=== PATIENT | female | born 1965 | race Caucasian/White ===

== ENCOUNTER 2020-11-22 17:42 | Emergency (ER) | payer OTHER, SELFPAY ==
[2020-11-22] VITALS (9 sets, daily range): BP systolic 132–172; BP diastolic 72–85; PULSE 75–83; RESP 16–18; TEMP 36.1; O2SAT 95–98
--- NOTE | 2020-11-22 17:58 | DI.CT.S_ITS ---
PROCEDURE: CT HEAD/BRAIN WO CON INDICATIONS: 2-4 wks of word searching difficulty / headache/ gen weaknes TECHNIQUE: Noncontrast 4.5 mm thick angled axial sections acquired from the foramen magnum to the vertex, with coronal and sagittal reformats. For radiation dose reduction, the following was used: automated exposure control, adjustment of mA and/or kV according to patient size. COMPARISON: None. FINDINGS: Image quality: Excellent. CSF spaces: Basal cisterns are patent. No extra-axial fluid collections. There is mass effect on the lateral ventricles which are partially effaced. Brain: Within the left frontal lobe, there is a thick walled mass or fluid collection measuring up to 4.0 x 3.3 x 3.5 cm centered at the stevenson-white matter junction. There is extensive associated vasogenic edema within the left frontal lobe as well as mass effect. There is subfalcine herniation with rightward midline shift measuring up to 0.9 cm. No definite transtentorial herniation. No intracranial hemorrhage. Skull and face: Calvarium and visualized facial bones are intact, without suspicious lesions. Sinuses: Visualized sinuses and mastoids are clear. IMPRESSION: 1. Thick-walled necrotic mass or fluid collection in the left frontal lobe with associated extensive vasogenic edema and mass effect with rightward midline shift. Differential considerations include metastatic disease or an intraparenchymal abscess. Recommend correlation clinically and further evaluation with a contrast enhanced MRI if indicated. Findings discussed with Dr. Monterroso on 11/22/2020 at 6:45 p.m.. Dictated by: Ralf Martinez M.D. on 11/22/2020 at 18:40 Approved by: Ralf Martinez M.D. on 11/22/2020 at 18:47
[2020-11-22 18:15] LABS: Add Manual Diff / Slide Review NO; Basophils Absolute Auto 100 /uL (0-100); Basophils Percent Auto 0.7 % (0-2); Eosinophils Absolute Auto 100 /uL (0-450); Eosinophils Percent Auto 0.7 % (2-4); Hematocrit 37.9 % (36-46); Hemoglobin 12.9 g/dL (12.0-16.0); Lymphocytes Absolute Auto 2200 /uL (1100-4500); Lymphocytes Percent Auto 31.7 % (25-40); Mean Corpuscular Hemoglobin 29.8 PG (26-34); Mean Corpuscular Volume 87.7 fL (80-100); Monocytes Absolute Auto 500 /uL (0-900); Monocytes Percent Auto 6.6 % (3-14); Neutrophils Absolute Auto 4200 /uL (1500-7000); Neutrophils Percent Auto 60.3 % (50-75); Platelet Count 387 X10^3/uL (150-400); Red Blood Cell Count 4.32 X10^6/uL (4.0-5.2); White Blood Cell Count 6.9 X10^3/uL (4.5-11.0)
[2020-11-22 18:18] LABS: INR 1.2 (0.9-1.3); Prothrombin Time 13.2 SECONDS (10.1-12.7)
[2020-11-22 18:21] LABS: PTT Partial Thromboplastin Tim 31 SECONDS (26.4-36.2)
[2020-11-22 18:23] LABS: Alanine Aminotransferase 20 IU/L (<35); Albumin 4.4 g/dL (3.5-5.0); Albumin Globulin Ratio 1.8 (1.0-2.8); Alkaline Phosphatase 73 U/L (38-126); Aspartate Aminotransferase 25 IU/L (14-36); Bilirubin Total 0.5 mg/dL (0.2-1.3); Blood Urea Nitrogen 9 mg/dL (7-17); Calcium 9.5 mg/dL (8.4-10.2); Carbon Dioxide 26 mmol/L (22-32); Chloride 96 mmol/L (98-107); Creatine Kinase 43 U/L (30-135); Estimated Glomerular Filt Rate > 60.0 mL/min (>60); Globulin 2.5 g/dL (1.7-4.1); Glucose 134 mg/dL (70-100); HEMOLYSIS 16 (0-50); Potassium 4.1 mmol/L (3.4-5.1); Sodium 128 mmol/L (137-145); Total Protein 6.9 g/dL (6.3-8.2)
[2020-11-22 18:34] LABS: Troponin I < 0.012 ng/mL (0.01-0.034)
--- NOTE | 2020-11-22 18:58 | ED.NEUROSD ---
HPI - Neuro Symptoms/Deficit General Chief Complaint: Neuro Symptoms/Deficit Stated Complaint: Pain in head/difficult to speak/poss stroke Time Seen by Provider: 11/22/20 18:04 Source: patient Mode of arrival: Wheelchair Limitations: no limitations History of Present Illness HPI Narrative: This is a 54-year-old female who comes emergency department with complaints of worsening headache for the last several weeks. Increasing difficulty with speaking particular last 2 or 3 days. Patient has noted some word-finding issues and some sensation changes on her left side of her upper and lower extremity. She describes it more of a sensation change. Patient does have quite a bit difficulty with expressing herself and her notes particularly worse last couple days but has been mild for the last several 2-4 weeks she has not had any difficulty with ambulation she does not appreciate any weakness and left versus right side. She has not appreciated any facial droop. No chest pain, no shortness of breath, no nausea or vomiting. Patient does not have any medical issues. She has not any major surgeries. No known drug allergies. Denies tobacco, alcohol or illicit. She has not had any fevers. She has not had any travel. Related Data Home Medications Medication Instructions Recorded Confirmed No Known Home Medications 11/22/20 11/22/20 Allergies Allergy/AdvReac Type Severity Reaction Status Date / Time No Known Drug Allergies Allergy Verified 11/22/20 17:58 Review of Systems Review of Systems ROS Unobtainable: All systems reviewed & are unremarkable except as noted in HPI and below Patient History Social History Smoking Status: Former smoker Smoking Status: Former smoker alcohol intake frequency: 0-2 drinks per day Substance Use Type: does not use Exam Narrative Exam Narrative: GEN: well nourished, well appearing female, alert and oriented x 3, patient appears to be in mild distress. HEENT: Atraumatic, pupils are equal round reactive to light, extraocular movements are intact, nares are clear, TMs are clear with no fluid, there is no conjunctival pallor. Throat is clear without any exudates, erythema, tonsillar enlargement or uvular deviation, patient has some right drink the nasal labial fold. HEART: Regular rate and rhythm without murmur, clicks, rubs. LUNGS:Lungs clear to auscultation, no wheezes, rales, crackles, chest moves symmetrically ABD:bowel sounds normal, soft, non-tender, no guarding, rebound, rigidity, no masses noted, no hepatosplenomegaly :No CVA tenderness MSCL: Non-tender, no muscle atrophy, muscles strength 5/5 upper and lower extremities, full range of motion. NEURO:CN 2-12 intact, sensation normal, reflexes 2/4 upper and lower extremities. finger nose finger test normal, heel hedrick test normal SKIN: Rash, erythema or other skin changes noted. Initial Vital Signs Initial Vital Signs: Vital Signs Temperature 96.9 F L 11/22/20 17:55 Pulse Rate 81 11/22/20 17:55 Respiratory Rate 16 11/22/20 17:55 Blood Pressure 132/72 11/22/20 17:55 Pulse Oximetry 97 11/22/20 17:55 Scores GCS [place] coma scale eye opening: Spontaneous Kelsi coma scale verbal response: Orientated Klesi coma scale motor response: Obey commands [place] coma scale total score: 15 NIH Stroke Scale Level of Conciousness: Alert, keenly responsive Ask month/age: Answers one question correctly, intubated follow commands Open/close eyes, close hand: Performs both tasks correctly Best gaze horizontal: Normal Visual dodson: No visual loss Facial palsy: Minor paralysis, flattened nasolabial fold, asymmetry on smiling Left arm drift: No drift for full 10 sec Right arm drift: No drift for full 10 sec Left leg drift: No drift for full 5 sec Right leg drift: No drift for full 5 sec Limb ataxia: Absent Sensory on face/arms/legs: Normal, no sensory loss Best language: Mild to moderate, slurs some words Dysarthria: Mild to mod,some slurring Extinction or inattention: No abnormality Total NIH Stroke scale score: 4 Course Orders Ordered: ED Orders 11/22/20 17:58 CT head/brain wo con Stat EKG-12 Lead Stat 11/22/20 18:04 Complete Blood Count AUTO DIFF Stat Comprehensive Metabolic Panel Stat Partial Thromboplastin Time Stat Prothrombin Time INR Stat Troponin & CK Cardiac Panel Stat 11/22/20 19:23 COVID19 - ADMIT (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 Zuniga kindly accepts for transfer. Patient has received dexamethasone 10 mg IV. She has not had any seizures at this point. They do not request any additional medications currently. Reviewed patient's current symptomatology, CT findings and plan for ED to ED transfer to [facility]. Vital Signs Vital signs: Vital Signs - 8 hr 11/22/20 17:55 11/22/20 19:23 11/22/20 19:30 Temperature 96.9 F L Pulse Rate 81 83 76 Respiratory Rate 16 16 Blood Pressure 132/72 169/85 H 154/77 H Pulse Oximetry 97 98 98 11/22/20 20:18 11/22/20 20:19 11/22/20 20:30 Temperature Pulse Rate 77 77 75 Respiratory Rate Blood Pressure 152/75 H 154/80 H Pulse Oximetry 97 98 96 11/22/20 21:00 11/22/20 21:01 11/22/20 21:30 Temperature Pulse Rate 75 76 77 Respiratory Rate 18 Blood Pressure 149/76 H 172/77 H Pulse Oximetry 96 97 95 MDM - Neuro Symptoms/Deficit Lab Data Result diagrams: 11/22/20 18:04 11/22/20 18:04 Labs: Lab Results 11/22/20 11/22/20 11/22/20 Range/Units 18:04 18:04 18:04 WBC 6.9 (4.5-11.0) X10^3/uL RBC 4.32 (4.0-5.2) X10^6/uL Hgb 12.9 (12.0-16.0) g/dL Hct 37.9 (36-46) % MCV 87.7 (80-100) fL MCH 29.8 (26-34) PG MCHC 34.0 (30-36) % RDW 14.0 (11.6-14.8) % Plt Count 387 (150-400) X10^3/uL Neut % (Auto) 60.3 (50-75) % Lymph % (Auto) 31.7 (25-40) % Caroline % (Auto) 6.6 (3-14) % Eos % (Auto) 0.7 L (2-4) % Baso % (Auto) 0.7 (0-2) % Neut # (Auto) 4200 (9314-3850) /uL Lymph # (Auto) 2200 (0242-5519) /uL Caroline # (Auto) 500 (0-900) /uL Eos # (Auto) 100 (0-450) /uL Baso # (Auto) 100 (0-100) /uL PT 13.2 H (10.1-12.7) SECONDS INR 1.2 (0.9-1.3) APTT 31 (26.4-36.2) SECONDS Sodium 128 L (137-145) mmol/L Potassium 4.1 (3.4-5.1) mmol/L Chloride 96 L (98-107) mmol/L Carbon Dioxide 26 (22-32) mmol/L BUN 9 (7-17) mg/dL Creatinine 0.36 L (0.52-1.04) mg/dL Estimated GFR > 60.0 (>60) mL/min BUN/Creatinine Ratio 25.0 H (6-22) Glucose 134 H (70-100) mg/dL Calcium 9.5 (8.4-10.2) mg/dL Total Bilirubin 0.5 (0.2-1.3) mg/dL AST 25 (14-36) IU/L ALT 20 (<35) IU/L Alkaline Phosphatase 73 (38-126) U/L Total Creatine Kinase 43 (30-135) U/L CK-MB (CK-2) TNP CK-MB (CK-2) Rel Index TNP Troponin I < 0.012 (0.01-0.034) ng/mL Total Protein 6.9 (6.3-8.2) g/dL Albumin 4.4 (3.5-5.0) g/dL Globulin 2.5 (1.7-4.1) g/dL Albumin/Globulin Ratio 1.8 (1.0-2.8) U Opiates 300ng/mL cut (Negative) Ur Oxycodone Screen (Negative) Urine Methadone Screen (Negative) Ur Barbiturates Screen (Negative) U Tricyclic Antidepress (Negative) Ur Phencyclidine Scrn (Negative) Ur Amphetamines Screen (Negative) U Methamphetamines Scrn (Negative) Ur MDMA Scrn (Ecstasy) (Negative) U Benzodiazepines Scrn (Negative) Urine Cocaine Screen (Negative) U Marijuana (THC) Screen (Negative) SARS-CoV-2 (PCR) (Negative) 11/22/20 11/22/20 Range/Units 19:23 19:47 WBC (4.5-11.0) X10^3/uL RBC (4.0-5.2) X10^6/uL Hgb (12.0-16.0) g/dL Hct (36-46) % MCV (80-100) fL MCH (26-34) PG MCHC (30-36) % RDW (11.6-14.8) % Plt Count (150-400) X10^3/uL Neut % (Auto) (50-75) % Lymph % (Auto) (25-40) % Caroline % (Auto) (3-14) % Eos % (Auto) (2-4) % Baso % (Auto) (0-2) % Neut # (Auto) (6627-0107) /uL Lymph # (Auto) (5900-1656) /uL Caroline # (Auto) (0-900) /uL Eos # (Auto) (0-450) /uL Baso # (Auto) (0-100) /uL PT (10.1-12.7) SECONDS INR (0.9-1.3) APTT (26.4-36.2) SECONDS Sodium (137-145) mmol/L Potassium (3.4-5.1) mmol/L Chloride (98-107) mmol/L Carbon Dioxide (22-32) mmol/L BUN (7-17) mg/dL Creatinine (0.52-1.04) mg/dL Estimated GFR (>60) mL/min BUN/Creatinine Ratio (6-22) Glucose (70-100) mg/dL Calcium (8.4-10.2) mg/dL Total Bilirubin (0.2-1.3) mg/dL AST (14-36) IU/L ALT (<35) IU/L Alkaline Phosphatase (38-126) U/L Total Creatine Kinase (30-135) U/L CK-MB (CK-2) CK-MB (CK-2) Rel Index Troponin I (0.01-0.034) ng/mL Total Protein (6.3-8.2) g/dL Albumin (3.5-5.0) g/dL Globulin (1.7-4.1) g/dL Albumin/Globulin Ratio (1.0-2.8) U Opiates 300ng/mL cut Negative (Negative) Ur Oxycodone Screen Negative (Negative) Urine Methadone Screen Negative (Negative) Ur Barbiturates Screen Negative (Negative) U Tricyclic Antidepress Negative (Negative) Ur Phencyclidine Scrn Negative (Negative) Ur Amphetamines Screen Negative (Negative) U Methamphetamines Scrn Negative (Negative) Ur MDMA Scrn (Ecstasy) Negative (Negative) U Benzodiazepines Scrn Negative (Negative) Urine Cocaine Screen Negative (Negative) U Marijuana (THC) Screen Negative (Negative) SARS-CoV-2 (PCR) Negative (Negative) Point of Care Testing Test Results Negative Urine Dip Bedside Urine Glucose Negative Bedside Urine Bilirubin - Negative Bedside Urine Ketone - Negative Urine Specific [place] 1.010 Bedside Urine Occult Blood - Negative Bedside Urine pH 7.0 Bedside Urine Protein - Negative Bedside Urine Nitrite - Negative Bedside Urine Leukocytes + [address] scan - head: Radiologist's Impression: Launch?[place] [id number] CT Scan Report Signed Patient: Melisa Orr MR#: [id number] : 1965 Acct:[id number] Age/Sex: 54 / F Date of Service: 11/22/20 Loc: ED Accession Number: [id number] ?? Procedure: CT head/brain wo con Ordering Provider: Francie Monterroso D.O. PROCEDURE:? CT HEAD/BRAIN WO CON ? INDICATIONS:? 2-4 wks of word searching difficulty / headache/ gen weaknes ? TECHNIQUE:? Noncontrast 4.5 mm thick angled axial sections acquired from the foramen magnum to the vertex, with coronal and sagittal reformats.? For radiation dose reduction, the following was used:? automated exposure control, adjustment of mA and/or kV according to patient size.? ? COMPARISON:? None. ? FINDINGS:? Image quality:? Excellent.? ? CSF spaces:? Basal cisterns are patent.? No extra-axial fluid collections.? There is mass effect on the lateral ventricles which are partially effaced. ? Brain:? Within the left frontal lobe, there is a thick walled mass or fluid collection measuring up to 4.0 x 3.3 x 3.5 cm centered at the stevenson-white matter junction.? There is extensive associated vasogenic edema within the left frontal lobe as well as mass effect. ?There is subfalcine herniation with rightward midline shift measuring up to 0.9 cm.? No definite transtentorial herniation.? No intracranial hemorrhage.? ? Skull and face:? Calvarium and visualized facial bones are intact, without suspicious lesions.? ? Sinuses:? Visualized sinuses and mastoids are clear.? ? IMPRESSION:? ? 1. Thick-walled necrotic mass or fluid collection in the left frontal lobe with associated extensive vasogenic edema and mass effect with rightward midline shift.? Differential considerations include metastatic disease or an intraparenchymal abscess.? Recommend correlation clinically and further evaluation with a contrast enhanced MRI if indicated. ? Findings discussed with Dr. Monterroso on 11/22/2020 at 6:45 p.m.. ? ? Dictated by: Ralf Martinez M.D. on 11/22/2020 at 18:40 ? ? Approved by: Ralf Martinez M.D. on 11/22/2020 at 18:47? ECG Data Attestation: I personally reviewed and interpreted this ECG as follows: Interpretation: Sinus rhythm rate of 71 SD 178 QRS of 92 and QTC of 456. No acute ST changes appreciated. [facility] Narrative Medical decision making narrative: This is a pleasant 54-year-old female who comes to the emergency department with complaint of several weeks possibly months of left-sided sensation changes. Patient has had some mild word-finding that she describes. She and her both note she has had significantly worsening headache on the left side as well as worsening expressive aphasia over the last several days. Patient has not appreciate any facial droop but does seem to have some mild changes on exam. Patient was given a 4 on her NIH scale but some of her difficulty was more from her expressive aphasia. Patient was given a dose of dexamethasone here in the department. She was not given any additional anti seizure medication but was transferred via ALS so this was an option if this occurred. Critical Care Time Critical Care Time Critical Care Time: Yes Total Critical Care Time: 45 Attestation: The high probability of a clinically significant, sudden or life threatening deterioration of the [neurologic] system(s) required my full and direct attention, intervention and personal management. The aggregate critical care time was [45] minutes. This time is in addition to time spent performing reported procedures but includes the following: [x] Data Review and interpretation x Patient assessment and monitoring of vital signs [x] Documentation [x] Medication orders and management Discharge Plan Departure Patient Disposition: Xfer [facility] Clinical Impression: Brain mass Prescriptions: No Action No Known Home Medications RF: 0
[2020-11-22] MEDS: DEXAMETHASONE 10 MG/ML VIAL IV (19:22)
[2020-11-22 20:13] LABS: UR Morphine/Opiate cutoff 300 Negative (Negative); Ur Creatinine Normal (Normal); Ur Specific Gravity Normal (Normal); Urine Amphetamines Negative (Negative); Urine Barbiturates Negative (Negative); Urine Benzodiazepines Negative (Negative); Urine Cocaine Negative (Negative); Urine MDMA Negative (Negative); Urine Methadone Negative (Negative); Urine Methamphetamines Negative (Negative); Urine Oxycodone Negative (Negative); Urine Phencyclidine Negative (Negative); Urine Tetrahydrocannabinol Negative (Negative); Urine Tricyclic Antidepressant Negative (Negative); Urine pH Normal (Normal)
[2020-11-22 20:19] LABS: COVID19 - ADMIT (NP swab/PCR) Negative (Negative)
--- NOTE | 2020-11-22 21:43 | PC.NURSE ---
Pt to triage w/ via wheel chair. c/o word searching difficulty x 2 months (per pt who did not alert ). noted it 2 weeks ago, with profound increase over past 3 days. Moving all exremities equally well. Equal sensation. Able to ambulate. Noted difficulty saying what she would like to say but able to communicate needs. Pt denies fever, any seizure activity, nausea / vomiting. Pt has no past medical history and does not take any medications. Long discussion with and pt. They have an autistic son for which pt is primary caregiver. Support given.
== END 2020-11-22 22:40 | disposition short-term general hospital (02) ==
PROVIDERS: Emergency Provider Emergency Medicine
DX: G93.89 Other specified disorders of brain (principal); R47.9 Unspecified speech disturbances; Z20.822 Contact with and (suspected) exposure to COVID-19
CPT/HCPCS: 36415; 70450; 80053; 80305; 81003; 81025; 82550; 84484; 85025; 85610; 85730; 87635; 93005; 96374; 99284; 99285; C9803; J1100

== ENCOUNTER → 2020-11-30 12:01 | Outpatient (CLI) | payer OTHER, SELFPAY ==
[2020-11-30 12:56] LABS: Sodium 133 mmol/L (137-145)
== END ==
PROVIDERS: Referring Provider Physician Assistant Surgical; Visit Provider Physician Assistant Surgical
DX: D49.6 Neoplasm of unspecified behavior of brain (principal)
CPT/HCPCS: 36415; 84295

== ENCOUNTER → 2021-06-22 16:57 | Outpatient (CLI) | payer OTHER, SELFPAY ==
--- NOTE | 2021-06-22 | DI.MRI.S_ITS ---
PROCEDURE: MR CERVICAL SPINE WO CON INDICATIONS: History of malignant neoplasm of brain TECHNIQUE: Noncontrast sagittal T1 spin echo and T2 fast spin echo, sagittal STIR, foraminal oblique sagittal T2 fast spin echo, and axial gradient echo or T2 fast spin echo through the cervical spine. COMPARISON: [facility], CT, CT HEAD/BRAIN WO CON, 11/22/2020, 18:36. FINDINGS: Image quality: Excellent. Alignment and Curvature: There is straightening of the normal cervical lordosis. No focal AP alignment abnormality is seen. Bone Marrow: Marrow demonstrates normal overall signal. Spinal Cord: Visualized spinal cord has normal size and signal. No cerebellar tonsillar herniation. Paraspinous Soft Tissues: No paravertebral masses. Prevertebral soft tissues are normal in thickness. C2-C3: No significant abnormality is seen. C3-C4: The disc height is well-preserved. Loss of disc signal is seen at this level. A mild degree of generalized disc osteophyte complex is seen. Mild to moderate facet hypertrophy is seen. There is [id number] right-sided and mild left-sided neural foraminal narrowing. Mild to moderate central canal narrowing is seen. Minimal mass effect can be seen upon the ventral spinal cord. C4-C5: The disc height is well-preserved. Loss of disc signal is seen at this level. Bridging endplate osteophytes are seen. Reactive marrow endplate changes are seen, which are hyperintense on T1-weighted and T2-weighted imaging and most consistent with fatty metaplasia (Modic type II changes). Moderate generalized disc osteophyte complex is seen. Mild to moderate facet hypertrophy is seen. There is moderate right-sided and moderate to severe left-sided neural foraminal narrowing. Moderate central canal narrowing is seen. There is associated mass effect upon the ventral spinal cord. C5-C6: At least moderate loss of disc height and disc signal can be seen. At least moderate disc osteophyte complex is seen, which is eccentric to the left. There is a central disc osteophyte protrusion seen. Moderate facet joint hypertrophy is seen. There is moderate to severe bilateral neural foraminal narrowing seen. Moderate central canal narrowing is seen. There is associated mass effect upon the ventral spinal cord. C6-C7: The disc height is well-preserved. Loss of disc signal is seen at this level. Moderate generalized disc osteophyte complex is seen. Reactive marrow endplate changes are seen, which are hyperintense on T1-weighted and T2-weighted imaging and most consistent with fatty metaplasia (Modic type II changes). There is a central/left disc osteophyte protrusion seen. Mild facet joint hypertrophy is seen. There is at least moderate bilateral neural foraminal narrowing seen. Mild to moderate central canal narrowing is seen, with a mild degree mass effect upon the ventral spinal cord. C7-T1: No significant abnormality is seen. IMPRESSION: Multiple levels of cervical spine degenerative change can be seen, which are overall worst at the C5-C6 level. Dictated by: German Velasquez M.D. on 06/22/2021 at 17:17 Approved by: German Velasquez M.D. on 06/22/2021 at 17:21
== END ==
PROVIDERS: PCP Internal Medicine; Referring Provider Orthopaedic Surgery; Visit Provider Orthopaedic Surgery
DX: M47.812 Spondylosis without myelopathy or radiculopathy, cervical region (principal); R20.0 Anesthesia of skin; Z85.841 Personal history of malignant neoplasm of brain
CPT/HCPCS: 72141

== ENCOUNTER 2021-07-03 11:37 | Emergency (ER) | payer OTHER, SELFPAY ==
[2021-07-03] VITALS (31 sets, daily range): BP systolic 106–145; BP diastolic 52–86; PULSE 88–124; RESP 12–27; TEMP 36.6; O2SAT 93–100; BMI 22.4
--- NOTE | 2021-07-03 11:37 | DI.CT.S_ITS ---
PROCEDURE: CT HEAD/BRAIN WO CON INDICATIONS: seizure, known brain mets TECHNIQUE: Noncontrast 4.5 mm thick angled axial sections acquired from the foramen magnum to the vertex, with coronal and sagittal reformats. For radiation dose reduction, the following was used: automated exposure control, adjustment of mA and/or kV according to patient size. COMPARISON: [facility], CT, CT HEAD/BRAIN WO CON, 11/22/2020, 18:36. FINDINGS: Image quality: Excellent. CSF spaces: Basal cisterns are patent. No extra-axial fluid collections. Ventricles are normal in size and shape. Brain: Again noted is a mass in the left frontal lobe with associated vasogenic edema. No significant mass effect or midline shift. No intracranial hemorrhage. Mild cerebral volume loss. Skull and face: Left frontal craniotomy. Calvarium and visualized facial bones are intact, without suspicious lesions. Sinuses: Visualized sinuses and mastoids are clear. IMPRESSION: 1. There is a mass in the left frontal lobe with associated vasogenic edema. No significant mass effect or midline shift. 2. Postsurgical changes are noted related to prior left frontal craniotomy. Dictated by: Josue Akbar M.D. on 07/03/2021 at 11:35 Approved by: Josue Akbar M.D. on 07/03/2021 at 11:39
[2021-07-03 12:09] LABS: Magnesium 1.9 mg/dL (1.6-2.3)
[2021-07-03] MEDS: SODIUM CHLORIDE 0.9% 1,000 ML 150 ML IV (12:23)
[2021-07-03 12:27] LABS: Prolactin 110.8 ng/mL (3.0-18.6)
[2021-07-03 12:28] LABS: Add Manual Diff / Slide Review NO; Basophils Absolute Auto 0 /uL (0-100); Basophils Percent Auto 0.5 % (0-2); Eosinophils Absolute Auto 100 /uL (0-450); Eosinophils Percent Auto 2.1 % (2-4); Hematocrit 38.2 % (36-46); Hemoglobin 13.1 g/dL (12.0-16.0); Lymphocytes Absolute Auto 600 /uL (1100-4500); Lymphocytes Percent Auto 19.7 % (25-40); Mean Corpuscular HGB Conc 34.2 % (30-36); Mean Corpuscular Volume 90.6 fL (80-100); Monocytes Absolute Auto 400 /uL (0-900); Monocytes Percent Auto 12.2 % (3-14); Neutrophils Absolute Auto 1900 /uL (1500-7000); Neutrophils Percent Auto 65.5 % (50-75); Platelet Count 250 X10^3/uL (150-400); Red Blood Cell Count 4.22 X10^6/uL (4.0-5.2); Red Cell Distribution Width 14.6 % (11.6-14.8); White Blood Cell Count 2.9 X10^3/uL (4.5-11.0)
--- NOTE | 2021-07-03 13:00 | ED_ITS ---
HPI - Seizure General Chief Complaint: Seizure Stated Complaint: Seizure Time Seen by Provider: 07/03/21 11:45 Source: EMS Mode of arrival: EMS History of Present Illness HPI Narrative: 55-year-old female nonsmoker with history of glioblastoma with prior surgical resection followed by radiation and chemotherapy with ongoing monthly oral c hemotherapy in managed by the [facility] presents by EMS for evaluation of first-time seizure. She had been in her normal state of health and denies any recent illness or trauma. Her 1st seizure was not fully witnessed and was noted by there autistic son at which point EMS was activated. She was still postictal on EMS arrival but soon thereafter had a 1 minute witnessed generalized tonic clonic seizure that was treated with Versed 5 mg. She has had no change in medications and had otherwise been largely at her baseline Related Data Home Medications Medication Instructions Recorded Confirmed gabapentin 300 mg capsule 300 mg PO BID cap 05/27/21 05/27/21 temozolomide 140 mg capsule 140 mg PO DAILY 05/27/21 05/27/21 (Temodar) Previous Rx's Medication Instructions Recorded levetiracetam 1,000 mg tablet 1,000 mg PO BID #30 tab 07/03/21 (Keppra) Allergies Allergy/AdvReac Type Severity Reaction Status Date / Time No Known Drug Allergies Allergy Verified 11/22/20 17:58 Review of Systems Review of Systems Narrative: GENERAL: Denies chills, fatigue, malaise, fever, sweats. HEENT: Denies sinus pain, ear pain, sore throat, difficulty swallowing, dizziness. RESPIRATORY: Denies dyspnea, cough, wheezing, hemoptysis, sputum. CARDIOVASCULAR: Denies chest pain, palpitations, orthopnea, edema, GASTROINTESTINAL: Denies nausea, vomiting, abdominal pain, diarrhea, constipation, melena. : Denies dysuria, frequency, incontinence, hematuria, urinary retention. MUSCULOSKELETAL: denies weakness, joint pain, or bony pain SKIN: Denies rash, skin lesions, or other NEUROLOGIC: See HPI PSYCHIATRIC: No concerning psychosocial issues. 12 point review of systems is negative except for those stated above Patient History Medical History Dupuytren contracture Glioblastoma Social History Smoking Status: Never smoker Smoking Status: Never smoker alcohol intake frequency: 0-2 drinks per day Substance Use Type: does not use Exam Narrative Exam Narrative: GENERAL: [55] year old patient appears stated age. Well-developed patient, in obvious distress, arousable, guarding or way, postictal HEAD: Atraumatic. Normocephalic. EYES: Pupils equal round and reactive. Extraocular motions intact. No scleral icterus. No injection or drainage. ENT: Nose without bleeding, purulent drainage. Throat without erythema, tonsillar hypertrophy or exudate. Airway patent. NECK: Trachea midline. Non tender CARDIOVASCULAR: Regular rate and rhythm without murmurs, gallops, or rubs. RESPIRATORY: Clear to auscultation. Breath sounds equal bilaterally. No wheezes, rales, or rhonchi. GASTROINTESTINAL: Abdomen soft, non-tender, nondistended. EXTREMITIES: No edema or joint tenderness. BACK: Nontender without deformity or crepitance. No flank tenderness. NEURO: CN 2 through 12 grossly intact. SKIN: No rash or erythema of visible areas Initial Vital Signs Initial Vital Signs: Vital Signs Pulse Rate 123 H 07/03/21 11:49 Respiratory Rate 19 07/03/21 11:49 Pulse Oximetry 99 07/03/21 11:49 Course Orders Ordered: Discontinued Medications Dexamethasone (Dexamethasone 10 Mg/Ml Vial) 10 mg IV NOW ONE Stop: 07/03/21 13:27 Last Admin: 07/03/21 13:46 Dose: Not Given Documented by: CHRISTIAN Sodium Chloride (Normal Saline 0.9%) 1,000 mls @ 150 mls/hr IV CONT RANJAN Last Infusion: 07/03/21 18:06 Dose: 0 mls/hr Documented by: Infusion: 07/03/21 18:06 Dose: 0 mls/hr Documented by: Admin: 07/03/21 12:23 Dose: 150 mls/hr Documented by: LESVIA Levetiracetam 1,850 mg/ Sodium (Chloride) 118.5 mls @ 474 mls/hr IV NOW ONE Stop: 07/03/21 13:24 Last Infusion: 07/03/21 15:22 Dose: 0 mls/hr Documented by: Admin: 07/03/21 13:47 Dose: 474 mls/hr Documented by: CHRISTIAN Reevaluation(s) Reevaluation #1: Patient had complete resolution of symptoms and had returned to baseline and developed in other generalized tonic clonic seizure that had resolved prior to abdomen could be administered. Reevaluation #2: patient observed for another few hours after Keppra load. She continues to be free of further seizure activity. Though tired, she is able to ambulate through the department without assistance. Consultations Consultation #1: Discussed with on-call Neurology from [facility], he had already reviewed today's CT scan and states no change in minimal vasogenic edema compared to most recent prior MRI from April. Recommends against Decadron for this reason and advocates for Keppra load with expected discharge and prescription for 1000 mg twice daily with close follow-up in [place] Vital Signs Vital signs: Vital Signs - 8 hr 07/03/21 11:49 07/03/21 11:50 07/03/21 12:00 Temperature 97.9 F Pulse Rate 123 H 120 H 123 H Respiratory Rate 19 14 19 Blood Pressure 135/79 145/86 H Pulse Oximetry 99 96 99 MDM - Seizure Lab Data Result diagrams: 07/03/21 11:45 07/03/21 11:45 Labs: Lab Results 07/03/21 07/03/21 07/03/21 Range/Units 11:41 11:45 11:45 WBC 2.9 L (4.5-11.0) X10^3/uL RBC 4.22 (4.0-5.2) X10^6/uL Hgb 13.1 (12.0-16.0) g/dL Hct 38.2 (36-46) % MCV 90.6 (80-100) fL MCH 31.0 (26-34) PG MCHC 34.2 (30-36) % RDW 14.6 (11.6-14.8) % Plt Count 250 (150-400) X10^3/uL Neut % (Auto) 65.5 (50-75) % Lymph % (Auto) 19.7 L (25-40) % Warren % (Auto) 12.2 (3-14) % Eos % (Auto) 2.1 (2-4) % Baso % (Auto) 0.5 (0-2) % Neut # (Auto) 1900 (0534-7004) /uL Lymph # (Auto) 600 L (9624-5046) /uL Warren # (Auto) 400 (0-900) /uL Eos # (Auto) 100 (0-450) /uL Baso # (Auto) 0 (0-100) /uL Sodium (137-145) mmol/L Potassium (3.4-5.1) mmol/L Chloride (98-107) mmol/L Carbon Dioxide (22-32) mmol/L BUN (7-17) mg/dL Creatinine (0.52-1.04) mg/dL Estimated GFR (>60) mL/min BUN/Creatinine Ratio (6-22) Glucose (70-100) mg/dL Calcium (8.4-10.2) mg/dL Magnesium 1.9 (1.6-2.3) mg/dL Total Bilirubin (0.2-1.3) mg/dL AST (14-36) IU/L ALT (<35) IU/L Alkaline Phosphatase (38-126) U/L Total Protein (6.3-8.2) g/dL Albumin (3.5-5.0) g/dL Globulin (1.7-4.1) g/dL Albumin/Globulin Ratio (1.0-2.8) Prolactin 110.8 H (3.0-18.6) ng/mL SARS-CoV-2 (PCR) Negative (Negative) 07/03/21 Range/Units 11:45 WBC (4.5-11.0) X10^3/uL RBC (4.0-5.2) X10^6/uL Hgb (12.0-16.0) g/dL Hct (36-46) % MCV (80-100) fL MCH (26-34) PG MCHC (30-36) % RDW (11.6-14.8) % Plt Count (150-400) X10^3/uL Neut % (Auto) (50-75) % Lymph % (Auto) (25-40) % Warren % (Auto) (3-14) % Eos % (Auto) (2-4) % Baso % (Auto) (0-2) % Neut # (Auto) (4068-1225) /uL Lymph # (Auto) (7289-1115) /uL Warren # (Auto) (0-900) /uL Eos # (Auto) (0-450) /uL Baso # (Auto) (0-100) /uL Sodium 138 (137-145) mmol/L Potassium 4.1 (3.4-5.1) mmol/L Chloride 105 (98-107) mmol/L Carbon Dioxide 24 (22-32) mmol/L BUN 13 (7-17) mg/dL Creatinine 0.52 (0.52-1.04) mg/dL Estimated GFR > 60 (>60) mL/min BUN/Creatinine Ratio 25.0 H (6-22) Glucose 105 H (70-100) mg/dL Calcium 9.0 (8.4-10.2) mg/dL Magnesium (1.6-2.3) mg/dL Total Bilirubin 0.3 (0.2-1.3) mg/dL AST 22 (14-36) IU/L ALT 16 (<35) IU/L Alkaline Phosphatase 84 (38-126) U/L Total Protein 6.4 (6.3-8.2) g/dL Albumin 4.1 (3.5-5.0) g/dL Globulin 2.3 (1.7-4.1) g/dL Albumin/Globulin Ratio 1.8 (1.0-2.8) Prolactin (3.0-18.6) ng/mL SARS-CoV-2 (PCR) (Negative) Imaging Data CT scan - head: Radiologist's Impression: Melisa Orr??55??F??1965 ? Allergy/Adv: No Known Drug Allergies (More??) Close Head CT (Signed) Stephon Akbar - 07/03/21 Cervical Spine MRI (Signed) Germna Velasquez - 06/22/21 DI Result 05/20/[address] (Signed) Ralf Martinez - 11/22/20 Launch?[address] [address] [address] Scan Report Signed Patient: Melisa Orr MR#: [id number] : 1965 Acct:[id number] Age/Sex: 55 / F Date of Service: 07/03/21 Loc: ED Accession Number: [id number] ?? Procedure: CT head/brain wo con Ordering Provider: Bradly Cheatham D.O. PROCEDURE:? CT HEAD/BRAIN WO CON ? INDICATIONS:? seizure, known brain mets ? TECHNIQUE:? Noncontrast 4.5 mm thick angled axial sections acquired from the foramen magnum to the vertex, with coronal and sagittal reformats.? For radiation dose reduction, the following was used:? automated exposure control, adjustment of mA and/or kV according to patient size.? ? COMPARISON:? [facility], CT, CT HEAD/BRAIN WO CON, 11/22/2020, 18:36. ? FINDINGS:? Image quality:? Excellent.? ? CSF spaces:? Basal cisterns are patent.? No extra-axial fluid collections.? Vent ricles are normal in size and shape.? ? Brain:? Again noted is a mass in the left frontal lobe with associated vasogenic edema.? No significant mass effect or midline shift.? No intracranial hemorrhage.? Mild cerebral volume loss.? ? Skull and face:? Left frontal craniotomy.? Calvarium and visualized facial bones are intact, without suspicious lesions.? ? Sinuses:? Visualized sinuses and mastoids are clear.? ? IMPRESSION:? ? 1. There is a mass in the left frontal lobe with associated vasogenic edema.? No significant mass effect or midline shift. ? 2. Postsurgical changes are noted related to prior left frontal craniotomy. ? ? ? Dictated by: Josue Akbar M.D. on 07/03/2021 at 11:35 ? ? Approved by: Josue Akbar M.D. on 07/03/2021 at 11:39 ? MDM Narrative Medical decision making narrative: 55-year-old female with history of glioblastoma status post surgical resection, radiation and chemotherapy is managed by Neurology at [facility] presents with first-time seizure in the aftermath of cancer treatment. Her 1st seizure was largely unwitnessed, the 2nd seen by EMS resolved with Versed and a 3rd witnessed by myself and other staff in the department resolved prior to administration of Ativan. Labs are unremarkable and imaging demonstrates no bleed or significant new vasogenic edema compared to prior imaging. She has been observed for many hours, I have consulted with her neurology group who recommend against Decadron given no new edema, but they do advocate for Keppra load followed by prescription of 1000 mg twice daily. About extensive discussion with the family at the bedside, they understand return precautions and have had questions answered to their apparent satisfaction Critical Care Time Critical Care Time Critical Care Time: Yes Total Critical Care Time: 45 Attestation: The high probability of a clinically significant, sudden or life threatening deterioration of the [CN] system(s) required my full and direct attention, intervention and personal management. The aggregate critical care time was [45] minutes. This time is in addition to time spent performing reported procedures but includes the following: [x] Data Review and interpretation x Patient assessment and monitoring of vital signs x Documentation x Medication orders and management Discharge Plan Departure Patient Disposition: Home Clinical Impression: Glioblastoma, Seizure Instructions: DI for Seizure (Not Epilepsy/Seizure Disorder) Activity Restrictions/Additional Instructions: *You have been diagnosed with [new seizure activity as a consequence of prior glioblastoma and subsequent treatments. *What to do: *Please continue to take your regular medications as directed. [x ] New medication prescriptions sent to your pharmacy: [[facility] ] [ ] New medication written as a paper prescription [ ] No new medications given *Please follow up with Dr. Saleh at the [facility] in the next few days. Please call Monday morning, let them know you were seen in the Emergency Department and that we would like you to be soon in follow up. * as we discussed you may not drive for the next 6 months (sooner if cleared by your neurology team) or engaging in activities that would be considered risk be or you to have another seizure such as swimming, riding a bicycle or other. *Return to Emergency Department if you should have any new, worsening or concerning symptoms, such as [fever greater than 101 F, shaking chills, worsening pain, persistent vomiting or other bothersome symptoms] Prescriptions: New levetiracetam [Keppra] 1,000 mg tablet 1,000 mg PO BID Qty: 30 0RF No Action gabapentin 300 mg capsule 300 mg PO BID 0RF Label Comments: TAKE 1 CAPSULE BY MOUTH TWICE A DAY temozolomide [Temodar] 140 mg capsule 140 mg PO DAILY 0RF Rx Instructions: must be taken on empty stomach Referrals: Filemon Briggs MD [Primary Care Provider] -
--- NOTE | 2021-07-03 13:26 | PC.NURSE ---
at 1322 the patient had a seizure lasting approximately 2 minutes long. She had full body jolting. She maintained O2 saturation above 90% during the episode.
[2021-07-03] MEDS: LORazepam 2 MG/ML INJ (13:27)
[2021-07-03] MEDS: LEVETIRACETAM IV (13:47)
[2021-07-03] MEDS: SODIUM CHLORIDE 0.9% IV (13:47)
[2021-07-03 13:53] LABS: COVID19 -Nasal RAPID Negative (Negative)
[2021-07-03 13:58] LABS: Alanine Aminotransferase 16 IU/L (<35); Albumin 4.1 g/dL (3.5-5.0); Albumin Globulin Ratio 1.8 (1.0-2.8); Alkaline Phosphatase 84 U/L (38-126); Aspartate Aminotransferase 22 IU/L (14-36); Bilirubin Total 0.3 mg/dL (0.2-1.3); Blood Urea Nitrogen 13 mg/dL (7-17); Carbon Dioxide 24 mmol/L (22-32); Chloride 105 mmol/L (98-107); Estimated Glomerular Filt Rate > 60 mL/min (>60); Globulin 2.3 g/dL (1.7-4.1); Glucose 105 mg/dL (70-100); HEMOLYSIS < 15 (0-50); Potassium 4.1 mmol/L (3.4-5.1); Sodium 138 mmol/L (137-145); Total Protein 6.4 g/dL (6.3-8.2)
== END 2021-07-03 18:15 | disposition home or self-care (01) ==
PROVIDERS: Emergency Provider Emergency Medicine; PCP Internal Medicine
DX: R56.9 Unspecified convulsions (principal); R03.0 Elevated blood-pressure reading, without diagnosis of hypertension; Z85.841 Personal history of malignant neoplasm of brain; Z20.822 Contact with and (suspected) exposure to COVID-19
CPT/HCPCS: 36415; 70450; 80053; 83735; 84146; 85025; 87635; 93005; 93010; 96365; 96366; 99284; 99291; C9803; J1953; J2060

== ENCOUNTER 2022-06-01 20:58 | Emergency (ER) | payer OTHER, SELFPAY ==
[2022-06-01] VITALS (34 sets, daily range): BP systolic 111–199; BP diastolic 56–98; PULSE 70–117; RESP 12–41; TEMP 36.4–36.6; O2SAT 92–100; BMI 24.1
--- NOTE | 2022-06-01 | DI.CT.S_ITS ---
PROCEDURE: CT STROKE INDICATIONS: stroke TECHNIQUE: Noncontrast 4.5 mm thick angled axial sections acquired from the foramen magnum to the vertex, with coronal reformats. For radiation dose reduction, the following was used: automated exposure control, adjustment of mA and/or kV according to patient size. COMPARISON: [facility], CT, CT HEAD/BRAIN WO CON, 07/03/2021, 11:50. FINDINGS: Image quality: Excellent. CSF spaces: Basal cisterns are patent. There is mild to moderate cerebral volume loss, with resultant ventricular and sulcal prominence. Mild ex vacuo dilatation of the left lateral ventricle is redemonstrated secondary to left frontal volume loss. Brain: No intracranial hemorrhage or new mass effect. There is encephalomalacia within the left frontal lobe as well as confluent areas of subcortical and periventricular hypodensity in the left frontal and parietal lobes and the right frontal lobe. The findings are increased compared to the prior study. No definite new loss of stevenson-white matter differentiation. Skull and face: Calvarium and visualized facial bones demonstrate no acute fractures. Postsurgical changes are redemonstrated consistent with a prior left frontal craniotomy. Sinuses: Visualized sinuses and mastoids are clear. IMPRESSION: 1. No acute intracranial hemorrhage or definite new loss of stevenson-white matter differentiation. 2. Postsurgical changes redemonstrated in the left frontal lobe with confluent areas of subcortical and periventricular hypodensity which are slightly increased and may represent postsurgical and posttreatment changes but recurrent or residual disease cannot be excluded. Findings discussed with Dr. Cheatham on 06/01/2022 at 9:09 p.m.. This study fulfills neurological imaging criteria for inclusion or exclusion of acute stroke therapies based on available published neurological imaging guidelines. Dictated by: Ralf Martinez M.D. on 06/01/2022 at 21:08 Approved by: Ralf Martinez M.D. on 06/01/2022 at 21:14
--- NOTE | 2022-06-01 21:02 | DI.CT.S_ITS ---
PROCEDURE: CT ANGIO HEAD AND NECK INDICATIONS: stroke TECHNIQUE: After the administration of intravenous contrast, 1 mm thick sections acquired from the aortic arch through the [place] of [place]. Post-contrast 4.5 mm thick sections then re-acquired from the foramen magnum to the vertex. 3-dimensional qfooojf-lsigflmak-jfjwefdkzu (MIP) and/or volume rendering reformats were acquired of the central intracranial vasculature and neck separately. For radiation dose reduction, the following was used: automated exposure control, adjustment of mA and/or kV according to patient size. COMPARISON: [facility], CT, CT HEAD/BRAIN WO CON, 07/03/2021, 11:50. [facility], CT, CT STROKE, 06/01/2022, 21:04. FINDINGS: Image quality: There is mild motion artifact. BRAIN: CSF spaces: Basal cisterns are patent. No extra-axial fluid collections. Ventricles are normal in size and shape. Brain: No intracranial hematoma collections, mass, or mass effect. There is encephalomalacia redemonstrated within the left frontal lobe as well as confluent areas of cortical and subcortical hypodensity. There is mild lobulated enhancement in the left periventricular white matter as seen on series 17, images 13 and 14. Skull and face: Calvarium and facial bones demonstrate no acute fractures. There are postsurgical changes in the left frontal bone consistent with prior craniotomy. Sinuses: Sinuses and mastoids are clear. HEAD CT ANGIOGRAPHY: Anterior circulation: Intracranial internal carotid arteries are normal in size and appear patent bilaterally. There is mild atherosclerotic calcification along the cavernous segments of the internal carotid arteries. The paired anterior cerebral arteries appear patent bilaterally. The anterior communicating artery also appears patent. The middle cerebral arteries appear patent bilaterally. No high-grade stenosis, occlusion, or filling defects. No cerebral aneurysms identified. Posterior circulation: Visualized portions of the vertebral arteries demonstrate normal caliber, and join to form a patent basilar artery. The posterior cerebral arteries appears patent bilaterally. No high-grade stenosis, occlusion, or filling defects. No cerebral aneurysms identified. NECK CT ANGIOGRAPHY: Carotid system: The great vessels demonstrate a conventional anatomy as they arise from the aortic arch. The origins of the common carotid arteries appear patent. The common carotid arteries demonstrate normal caliber and courses. The bifurcation regions are both widely patent. The internal carotid arteries demonstrate normal calibers and courses. Posterior circulation: The origins of the vertebral arteries both appear patent. The more superior extracranial portions of both vertebral arteries also demonstrate normal courses and calibers. They join to form a patent basilar artery. Soft tissues: Visualized neck soft tissues demonstrate no suspicious abnormalities. Bones: No suspicious bony lesions. Visualized cervical spine demonstrates straightening of the cervical lordosis. There is multilevel degenerative disc disease and facet joint arthropathy. IMPRESSION: 1. No high-grade stenosis or occlusion of the central intracranial arteries. 2. No high-grade stenosis or occlusion of the head and neck arteries. 3. Left frontal postsurgical changes redemonstrated. 4. Confluent areas of cortical and subcortical hypodensity redemonstrated primarily within the left frontal lobe with a region of mild lobulated enhancement as described. The findings are suspicious for residual or recurrent disease. Recommend follow-up evaluation with MRI when clinically feasible. Any quantitative measurements of stenosis were performed using NASCET criteria. Dictated by: Ralf Martinez M.D. on 06/01/2022 at 21:49 Approved by: Ralf Martinez M.D. on 06/01/2022 at 21:54
[2022-06-01 21:12] LABS: Add Manual Diff / Slide Review NO; Basophils Absolute Auto 100 /uL (0-100); Basophils Percent Auto 1.2 % (0-2); Eosinophils Absolute Auto 200 /uL (0-450); Eosinophils Percent Auto 3.3 % (2-4); Hematocrit 39.2 % (36-46); Hemoglobin 13.3 g/dL (12.0-16.0); INR 1.1 (0.9-1.3); Lymphocytes Absolute Auto 1500 /uL (1100-4500); Lymphocytes Percent Auto 29.3 % (25-40); Mean Corpuscular HGB Conc 33.8 % (30-36); Mean Corpuscular Hemoglobin 30.5 PG (26-34); Mean Corpuscular Volume 90.1 fL (80-100); Monocytes Absolute Auto 600 /uL (0-900); Neutrophils Absolute Auto 2800 /uL (1500-7000); Neutrophils Percent Auto 54.2 % (50-75); Platelet Count 330 X10^3/uL (150-400); Prothrombin Time 12.9 SECONDS (10.1-12.7); Red Blood Cell Count 4.35 X10^6/uL (4.0-5.2); Red Cell Distribution Width 13.5 % (11.6-14.8); White Blood Cell Count 5.2 X10^3/uL (4.5-11.0)
[2022-06-01 21:14] LABS: PTT Partial Thromboplastin Tim 29 SECONDS (26-36)
--- NOTE | 2022-06-01 21:14 | ED_ITS ---
HPI - Altered Mental Status <Bradly Cheatham DO - Last Filed: 06/03/22 22:06> General Chief Complaint: Neuro Symptoms/Deficit Stated Complaint: Stroke Time Seen by Provider: 06/01/22 21:03 History of Present Illness HPI narrative: 56-year-old female nonsmoker with history of glioblastoma and seizure. She is had treatment including neurosurgical intervention through the [facility]. She had been in her normal state of health until 8:15 p.m. tonight when she started having trouble with speech and seemed to be staring off to the right side. There is no obvious extremity weakness. She presents by EMS in his activated as a code stroke. She presents with an Optune device which has been used with apparent success since about July or August. Her is at the bedside and reports that she had been in her normal state of health with no change in medications or diet up until this event. She does not take blood thinners. Last neurosurgical intervention was 2020 Related Data Home Medications Medication Instructions Recorded Confirmed Naltrexone Ir 4 mg PO BEDTIME 06/02/22 06/02/22 levetiracetam 750 mg tablet 1,500 mg PO BID 06/02/22 06/02/22 Previous Rx's Medication Instructions Recorded levetiracetam 250 mg tablet See Rx Instructions .Route 06/03/22 (Keppra) .COMPLEX #60 tabs Allergies Allergy/AdvReac Type Severity Reaction Status Date / Time No Known Drug Allergies Allergy Verified 06/02/22 07:33 Review of Systems <Bradly Cheatham DO - Last Filed: 06/03/22 22:06> Review of Systems ROS Unobtainable: Unobtainable due to mental status/LOC Patient History <Bradly Cheatham DO - Last Filed: 06/03/22 22:06> Medical History Anxiety (~2020) Chicken pox (~1966) Dupuytren contracture Glioblastoma (~2020) Mumps (~1968) Shoulder pain (~1977) Surgical History Anesthesia History of brain surgery (~11/22/20) History of tonsillectomy and adenoidectomy (~1967) Family History Father Mental health problem Sister Breast cancer Grandfather Cancer Grandmother History of heart disease Social History Smoking Status: Never smoker Smoking Status: Never smoker alcohol intake frequency: 0-2 drinks per day Substance Use Type: does not use Exam <Bradly Cheatham DO - Last Filed: 06/03/22 22:06> Narrative Exam Narrative: GENERAL: [56] year old patient appears stated age. Well-developed patient, in mild distress. Unable to follow commands, making eye contact but speech is garbled HEAD: Atraumatic. Normocephalic. EYES: Pupils equal round and reactive. Extraocular motions intact. No scleral icterus. No injection or drainage. ENT: Nose without bleeding, purulent drainage. Throat without erythema, tonsillar hypertrophy or exudate. Airway patent. NECK: Trachea midline. Non tender CARDIOVASCULAR: Regular rate and rhythm without murmurs, gallops, or rubs. RESPIRATORY: Clear to auscultation. Breath sounds equal bilaterally. No wheezes, rales, or rhonchi. GASTROINTESTINAL: Abdomen soft, non-tender, nondistended. EXTREMITIES: No edema or joint tenderness. BACK: CNII-XII grossly in tact SKIN: No rash or erythema of visible areas Initial Vital Signs Initial Vital Signs: Vital Signs Pulse Oximetry 98 06/01/22 21:13 <Francie Monterroso DO - Last Filed: 06/04/22 08:07> Initial Vital Signs Initial Vital Signs: Vital Signs Pulse Oximetry 98 06/01/22 21:13 Course <Bradly Cheatham DO - Last Filed: 06/03/22 22:06> Orders Ordered: Discontinued Medications Dexamethasone (Dexamethasone 4 Mg/Ml Vial) 4 mg IV NOW ONE Stop: 06/01/22 22:12 Last Admin: 06/01/22 22:17 Dose: 4 mg Documented By: RB Levetiracetam 1,000 mg/ Sodium (Chloride) 110 mls @ 440 mls/hr IV NOW ONE Stop: 06/01/22 21:58 Last Infusion: 06/01/22 22:21 Dose: 0 mls/hr Documented By: Admin: 06/01/22 22:04 Dose: 440 mls/hr Documented By: RB Levetiracetam (Levetiracetam 250 Mg Tablet) 1,500 mg PO BID RANJAN Last Admin: 06/03/22 08:33 Dose: 1,500 mg Documented By: Admin: 06/02/22 20:55 Dose: 1,500 mg Documented By: Admin: 06/02/22 08:25 Dose: 1,500 mg Documented By: CTS Levetiracetam (Levetiracetam 250 Mg Tablet) 500 mg PO NOW ONE Stop: 06/03/22 10:37 Last Admin: 06/03/22 10:54 Dose: 500 mg Documented By: RLS Lorazepam (Lorazepam 2 Mg/Ml Inj) 2 mg IV NOW ONE Stop: 06/01/22 21:58 Last Admin: 06/01/22 21:59 Dose: 2 mg Documented By: RB Reevaluation(s) Reevaluation #1: Called to see patient, having much more classic seizure type activity at this point, staring to the right with more vigorous twitching of her right upper extremity. Ativan 2 mg IV ordered along with Keppra 1000 mg Reevaluation #2: noted improvement of more vigorous seizure activity. Still mumbling words Consultations Consultation #1: 2109 - call from Dr. Martinez radiology. No bleed 2114 - [place] [place]. Agrees with no TPA given contraindication due to brain tumor 2149 - discussed with NeuroOncology (Susanna) agrees this is likely complex partial seizure, recommends Decadron 4 mg through the IV and agrees that transfer is likely to be beneficial. Can not admit, recommends discussion with neuro, working on bed 0230 - resting, seems to be somewhat improved. No further seizure activity Vital Signs Vital signs: Vital Signs - 8 hr 06/03/22 03:40 06/03/22 08:35 Pulse Rate 64 80 Respiratory Rate 18 Blood Pressure 117/66 108/55 L Pulse Oximetry 96 96 Oxygen Delivery Method Room Air <Francie Monterroso DO - Last Filed: 06/04/22 08:07> Orders Ordered: Discontinued Medications Dexamethasone (Dexamethasone 4 Mg/Ml Vial) 4 mg IV NOW ONE Stop: 06/01/22 22:12 Last Admin: 06/01/22 22:17 Dose: 4 mg Documented By: RB Levetiracetam 1,000 mg/ Sodium (Chloride) 110 mls @ 440 mls/hr IV NOW ONE Stop: 06/01/22 21:58 Last Infusion: 06/01/22 22:21 Dose: 0 mls/hr Documented By: Admin: 06/01/22 22:04 Dose: 440 mls/hr Documented By: RB Levetiracetam (Levetiracetam 250 Mg Tablet) 1,500 mg PO BID RANJAN Last Admin: 06/03/22 08:33 Dose: 1,500 mg Documented By: Admin: 06/02/22 20:55 Dose: 1,500 mg Documented By: Admin: 06/02/22 08:25 Dose: 1,500 mg Documented By: PIERCE Levetiracetam (Levetiracetam 250 Mg Tablet) 500 mg PO NOW ONE Stop: 06/03/22 10:37 Last Admin: 06/03/22 10:54 Dose: 500 mg Documented By: BALTAZAR Lorazepam (Lorazepam 2 Mg/Ml Inj) 2 mg IV NOW ONE Stop: 06/01/22 21:58 Last Admin: 06/01/22 21:59 Dose: 2 mg Documented By: RB Vital Signs Vital signs: Vital Signs - 8 hr 06/03/22 03:40 06/03/22 08:35 Pulse Rate 64 80 Respiratory Rate 18 Blood Pressure 117/66 108/55 L Pulse Oximetry 96 96 Oxygen Delivery Method Room Air MDM - Altered Mental Status <Bradly Cheatham DO - Last Filed: 06/03/22 22:06> Lab Data 06/01/22 20:55 06/01/22 20:55 Labs: Lab Results 06/01/22 06/01/22 06/01/22 Range/Units 20:55 20:55 20:55 WBC 5.2 (4.5-11.0) X10^3/uL RBC 4.35 (4.0-5.2) X10^6/uL Hgb 13.3 (12.0-16.0) g/dL Hct 39.2 (36-46) % MCV 90.1 (80-100) fL MCH 30.5 (26-34) PG MCHC 33.8 (30-36) % RDW 13.5 (11.6-14.8) % Plt Count 330 (150-400) X10^3/uL Neut % (Auto) 54.2 (50-75) % Lymph % (Auto) 29.3 (25-40) % Concho % (Auto) 12.0 (3-14) % Eos % (Auto) 3.3 (2-4) % Baso % (Auto) 1.2 (0-2) % Neut # (Auto) 2800 (3281-1182) /uL Lymph # (Auto) 1500 (5376-3805) /uL Concho # (Auto) 600 (0-900) /uL Eos # (Auto) 200 (0-450) /uL Baso # (Auto) 100 (0-100) /uL PT 12.9 H (10.1-12.7) SECONDS INR 1.1 (0.9-1.3) APTT 29 (26-36) SECONDS Sodium 134 L (137-145) mmol/L Potassium 4.2 (3.4-5.1) mmol/L Chloride 98 (98-107) mmol/L Carbon Dioxide 28 (22-32) mmol/L BUN 18 H (7-17) mg/dL Creatinine 0.57 (0.52-1.04) mg/dL Estimated GFR > 60 (>60) mL/min BUN/Creatinine Ratio 31.6 H (6-22) Glucose 101 H (70-100) mg/dL Calcium 9.5 (8.4-10.2) mg/dL Total Bilirubin 0.5 (0.2-1.3) mg/dL AST 29 (14-36) IU/L ALT 34 (<35) IU/L Alkaline Phosphatase 107 (38-126) U/L Total Creatine Kinase 49 (30-135) U/L CK-MB (CK-2) TNP CK-MB (CK-2) Rel Index TNP Troponin I < 0.012 (0.01-0.034) ng/mL Total Protein 7.2 (6.3-8.2) g/dL Albumin 4.5 (3.5-5.0) g/dL Globulin 2.7 (1.7-4.1) g/dL Albumin/Globulin Ratio 1.7 (1.0-2.8) Urine Color Urine Appearance Urine pH (4.5-8.0) Ur Specific Roberta (1.000-1.035) Urine Protein (Negative) Urine Glucose (UA) (Negative) g/dL Urine Ketones (NEGATIVE) Urine Occult Blood (Negative) Urine Nitrate (Negative) Urine Bilirubin (NEGATIVE) Urine Urobilinogen (0.2) E.U./dL Ur Leukocyte Esterase (NEGATIVE) Urine RBC (0-5/HPF) Urine WBC (0-5/HPF) Ur Squamous Epith Cells (0-5/HPF) Urine Bacteria (None) Ur Culture Indicated? U Opiates 300ng/mL cut (Negative) Ur Oxycodone Screen (Negative) Urine Methadone Screen (Negative) Ur Barbiturates Screen (Negative) U Tricyclic Antidepress (Negative) Ur Phencyclidine Scrn (Negative) Ur Amphetamines Screen (Negative) U Methamphetamines Scrn (Negative) Ur MDMA Scrn (Ecstasy) (Negative) U Benzodiazepines Scrn (Negative) Urine Cocaine Screen (Negative) U Marijuana (THC) Screen (Negative) Ethyl Alcohol < 10 ( - 10) mg/dL SARS-CoV-2 (PCR) (Negative) 06/01/22 06/01/22 06/01/22 Range/Units 21:25 21:25 21:29 WBC (4.5-11.0) X10^3/uL RBC (4.0-5.2) X10^6/uL Hgb (12.0-16.0) g/dL Hct (36-46) % MCV (80-100) fL MCH (26-34) PG MCHC (30-36) % RDW (11.6-14.8) % Plt Count (150-400) X10^3/uL Neut % (Auto) (50-75) % Lymph % (Auto) (25-40) % Concho % (Auto) (3-14) % Eos % (Auto) (2-4) % Baso % (Auto) (0-2) % Neut # (Auto) (8236-9893) /uL Lymph # (Auto) (9949-0673) /uL Concho # (Auto) (0-900) /uL Eos # (Auto) (0-450) /uL Baso # (Auto) (0-100) /uL PT (10.1-12.7) SECONDS INR (0.9-1.3) APTT (26-36) SECONDS Sodium (137-145) mmol/L Potassium (3.4-5.1) mmol/L Chloride (98-107) mmol/L Carbon Dioxide (22-32) mmol/L BUN (7-17) mg/dL Creatinine (0.52-1.04) mg/dL Estimated GFR (>60) mL/min BUN/Creatinine Ratio (6-22) Glucose (70-100) mg/dL Calcium (8.4-10.2) mg/dL Total Bilirubin (0.2-1.3) mg/dL AST (14-36) IU/L ALT (<35) IU/L Alkaline Phosphatase (38-126) U/L Total Creatine Kinase (30-135) U/L CK-MB (CK-2) CK-MB (CK-2) Rel Index Troponin I (0.01-0.034) ng/mL Total Protein (6.3-8.2) g/dL Albumin (3.5-5.0) g/dL Globulin (1.7-4.1) g/dL Albumin/Globulin Ratio (1.0-2.8) Urine Color Yellow Urine Appearance Clear Urine pH 6.5 (4.5-8.0) Ur Specific Roberta <=1.005 (1.000-1.035) Urine Protein Negative (Negative) Urine Glucose (UA) Negative (Negative) g/dL Urine Ketones Negative (NEGATIVE) Urine Occult Blood Negative (Negative) Urine Nitrate Negative (Negative) Urine Bilirubin Negative (NEGATIVE) Urine Urobilinogen 0.2 (0.2) E.U./dL Ur Leukocyte Esterase 1+ H (NEGATIVE) Urine RBC 1-5/hpf (0-5/HPF) Urine WBC 1-5/hpf (0-5/HPF) Ur Squamous Epith Cells 0-1 /hpf (0-5/HPF) Urine Bacteria None seen (None) Ur Culture Indicated? Specimen cultured U Opiates 300ng/mL cut Negative (Negative) Ur Oxycodone Screen Negative (Negative) Urine Methadone Screen Negative (Negative) Ur Barbiturates Screen Negative (Negative) U Tricyclic Antidepress Negative (Negative) Ur Phencyclidine Scrn Negative (Negative) Ur Amphetamines Screen Negative (Negative) U Methamphetamines Scrn Negative (Negative) Ur MDMA Scrn (Ecstasy) Negative (Negative) U Benzodiazepines Scrn Negative (Negative) Urine Cocaine Screen Negative (Negative) U Marijuana (THC) Screen Negative (Negative) Ethyl Alcohol ( - 10) mg/dL SARS-CoV-2 (PCR) Negative (Negative) Point of Care Testing Glucose POC 107 <Francie Monterroso, DO - Last Filed: 06/04/22 08:07> Lab Data Labs: Lab Results 06/01/22 06/01/22 06/01/22 Range/Units 20:55 20:55 20:55 WBC 5.2 (4.5-11.0) X10^3/uL RBC 4.35 (4.0-5.2) X10^6/uL Hgb 13.3 (12.0-16.0) g/dL Hct 39.2 (36-46) % MCV 90.1 (80-100) fL MCH 30.5 (26-34) PG MCHC 33.8 (30-36) % RDW 13.5 (11.6-14.8) % Plt Count 330 (150-400) X10^3/uL Neut % (Auto) 54.2 (50-75) % Lymph % (Auto) 29.3 (25-40) % Concho % (Auto) 12.0 (3-14) % Eos % (Auto) 3.3 (2-4) % Baso % (Auto) 1.2 (0-2) % Neut # (Auto) 2800 (8048-9544) /uL Lymph # (Auto) 1500 (9902-6683) /uL Concho # (Auto) 600 (0-900) /uL Eos # (Auto) 200 (0-450) /uL Baso # (Auto) 100 (0-100) /uL PT 12.9 H (10.1-12.7) SECONDS INR 1.1 (0.9-1.3) APTT 29 (26-36) SECONDS Sodium 134 L (137-145) mmol/L Potassium 4.2 (3.4-5.1) mmol/L Chloride 98 (98-107) mmol/L Carbon Dioxide 28 (22-32) mmol/L BUN 18 H (7-17) mg/dL Creatinine 0.57 (0.52-1.04) mg/dL Estimated GFR > 60 (>60) mL/min BUN/Creatinine Ratio 31.6 H (6-22) Glucose 101 H (70-100) mg/dL Calcium 9.5 (8.4-10.2) mg/dL Total Bilirubin 0.5 (0.2-1.3) mg/dL AST 29 (14-36) IU/L ALT 34 (<35) IU/L Alkaline Phosphatase 107 (38-126) U/L Total Creatine Kinase 49 (30-135) U/L CK-MB (CK-2) TNP CK-MB (CK-2) Rel Index TNP Troponin I < 0.012 (0.01-0.034) ng/mL Total Protein 7.2 (6.3-8.2) g/dL Albumin 4.5 (3.5-5.0) g/dL Globulin 2.7 (1.7-4.1) g/dL Albumin/Globulin Ratio 1.7 (1.0-2.8) Urine Color Urine Appearance Urine pH (4.5-8.0) Ur Specific Roberta (1.000-1.035) Urine Protein (Negative) Urine Glucose (UA) (Negative) g/dL Urine Ketones (NEGATIVE) Urine Occult Blood (Negative) Urine Nitrate (Negative) Urine Bilirubin (NEGATIVE) Urine Urobilinogen (0.2) E.U./dL Ur Leukocyte Esterase (NEGATIVE) Urine RBC (0-5/HPF) Urine WBC (0-5/HPF) Ur Squamous Epith Cells (0-5/HPF) Urine Bacteria (None) Ur Culture Indicated? U Opiates 300ng/mL cut (Negative) Ur Oxycodone Screen (Negative) Urine Methadone Screen (Negative) Ur Barbiturates Screen (Negative) U Tricyclic Antidepress (Negative) Ur Phencyclidine Scrn (Negative) Ur Amphetamines Screen (Negative) U Methamphetamines Scrn (Negative) Ur MDMA Scrn (Ecstasy) (Negative) U Benzodiazepines Scrn (Negative) Urine Cocaine Screen (Negative) U Marijuana (THC) Screen (Negative) Ethyl Alcohol < 10 ( - 10) mg/dL SARS-CoV-2 (PCR) (Negative) 06/01/22 06/01/22 06/01/22 Range/Units 21:25 21:25 21:29 WBC (4.5-11.0) X10^3/uL RBC (4.0-5.2) X10^6/uL Hgb (12.0-16.0) g/dL Hct (36-46) % MCV (80-100) fL MCH (26-34) PG MCHC (30-36) % RDW (11.6-14.8) % Plt Count (150-400) X10^3/uL Neut % (Auto) (50-75) % Lymph % (Auto) (25-40) % Concho % (Auto) (3-14) % Eos % (Auto) (2-4) % Baso % (Auto) (0-2) % Neut # (Auto) (5994-2965) /uL Lymph # (Auto) (7090-7708) /uL Concho # (Auto) (0-900) /uL Eos # (Auto) (0-450) /uL Baso # (Auto) (0-100) /uL PT (10.1-12.7) SECONDS INR (0.9-1.3) APTT (26-36) SECONDS Sodium (137-145) mmol/L Potassium (3.4-5.1) mmol/L Chloride (98-107) mmol/L Carbon Dioxide (22-32) mmol/L BUN (7-17) mg/dL Creatinine (0.52-1.04) mg/dL Estimated GFR (>60) mL/min BUN/Creatinine Ratio (6-22) Glucose (70-100) mg/dL Calcium (8.4-10.2) mg/dL Total Bilirubin (0.2-1.3) mg/dL AST (14-36) IU/L ALT (<35) IU/L Alkaline Phosphatase (38-126) U/L Total Creatine Kinase (30-135) U/L CK-MB (CK-2) CK-MB (CK-2) Rel Index Troponin I (0.01-0.034) ng/mL Total Protein (6.3-8.2) g/dL Albumin (3.5-5.0) g/dL Globulin (1.7-4.1) g/dL Albumin/Globulin Ratio (1.0-2.8) Urine Color Yellow Urine Appearance Clear Urine pH 6.5 (4.5-8.0) Ur Specific Roberta <=1.005 (1.000-1.035) Urine Protein Negative (Negative) Urine Glucose (UA) Negative (Negative) g/dL Urine Ketones Negative (NEGATIVE) Urine Occult Blood Negative (Negative) Urine Nitrate Negative (Negative) Urine Bilirubin Negative (NEGATIVE) Urine Urobilinogen 0.2 (0.2) E.U./dL Ur Leukocyte Esterase 1+ H (NEGATIVE) Urine RBC 1-5/hpf (0-5/HPF) Urine WBC 1-5/hpf (0-5/HPF) Ur Squamous Epith Cells 0-1 /hpf (0-5/HPF) Urine Bacteria None seen (None) Ur Culture Indicated? Specimen cultured U Opiates 300ng/mL cut Negative (Negative) Ur Oxycodone Screen Negative (Negative) Urine Methadone Screen Negative (Negative) Ur Barbiturates Screen Negative (Negative) U Tricyclic Antidepress Negative (Negative) Ur Phencyclidine Scrn Negative (Negative) Ur Amphetamines Screen Negative (Negative) U Methamphetamines Scrn Negative (Negative) Ur MDMA Scrn (Ecstasy) Negative (Negative) U Benzodiazepines Scrn Negative (Negative) Urine Cocaine Screen Negative (Negative) U Marijuana (THC) Screen Negative (Negative) Ethyl Alcohol ( - 10) mg/dL SARS-CoV-2 (PCR) Negative (Negative) Point of Care Testing Glucose POC 107 MDM Narrative Medical decision making narrative: This is a 56-year-old female signed out to myself by Dr. Cheatham, patient seen and independently evaluated by myself while awaiting bed assignment and finney sfer. Patient has history of glioblastoma and prior seizures. Patient has had prior neurosurgical intervention through [facility]. Had concern for possible stroke versus complex seizure overnight was seen here and then developed seizure-like activity that appeared to be complex seizure of the right upper extremity. Patient was loaded with Keppra, received a 2 mg dose of Ativan. Had significant improvement and is alert, appropriate and back to baseline. Patient's case was discussed with Neurology stroke, Neuro-Oncology as well as neuro hospitalist at [facility] she was also given 4 mg of Decadron with plan for transfer to [facility]. Dr. Mullins is the accepting physician at . 1036 Called to bedside questionable patient has a little bit of right droop at the corner of her mouth. Patient over comes as easily with smile and movement. Rest of her current neuro exam is normal. She does have little bit of a flat affect which he had when I initially saw her as well. We will continue to monitor patient does not have any other acute or dynamic neurologic changes appreciated right now. Patient signed out to Dr. Marcos overnight while a waiting possible placement. 06/03/22 Mank: Patient had an uneventful night. Signed back out to myself by Dr. Marcos. Seen and evaluated by myself. Patient has continued her Keppra at 1500mg BID. Recontacted to [facility] to discuss if patient still requires transfer at 30 hours of observation without additional seizure activity or if appropriate for outpatient follow up. Discussed with patient she feels comfortable this plan, we discussed if she or her feels uncomfortable we do not have to discharge. I discussed with her all contact her [facility] team to see what their recommendations are and if they feel this is appropriate course of action or if we should continue to hold until transfers available. Spoke with Dr. Vera at [facility], patient's is also familiar with her he notes she is covering for her regular neurology team. We reviewed their recommendations as well as ours, she does recommend patient be on 17 50 mg b.i.d. as 1500 mg twice daily is her normal home dose. There had been discussion about dexamethasone we discussed that she had 4 mg initially here has not had any continued based on initial recommendations from the initial team. She feels appropriate to keep patient off the dexamethasone at this point. She feels patient is appropriate for discharge with >24 hours seizure free and no additional changes. She has follow-up on the 15 of June and has a MRI scheduled in the next week according to her . Patient is quite comfortable with this plan. Discussed recommendations with the who is also touching base with the neurology team, he was in contact with Dr. Vera and her team today as well and agrees with plan. Discussed return precautions. She is currently on 2 tablets of 750 mg Keppra for a total of 1500 mg will add a 250 mg tablet twice daily. Additional dose given here this morning and 1 dose for this evening at home with a prescription sent to [facility] in [place] as that is the closest their insurance covers. Discharge Plan Departure Patient Disposition: Home Clinical Impression: Complex partial seizure, Glioblastoma Activity Restrictions/Additional Instructions: Follow up with your team at [facility] at your appointment on June 15, Dr. Vera does ask to connect with office. They do recommend to increase your Keppra to 1750mg twice daily, this means to add at 250mg tablet to your current Keppra (2 tablets for 750mg). Prescription sent to [facility] in [place] Please return for recurrent seizure activity, altered mental status, fevers, new difficulty with movement, speech, facial droop, severe headaches, persistent vomiting or other new or concerning changes. Prescriptions: New levetiracetam [Keppra] 250 mg tablet See Rx Instructions .ROUTE .COMPLEX Qty: 60 0RF Rx Instructions: Take 2 tablets of 750mg and 1 tablet of 250mg (1500mg total) twice daily No Action levetiracetam 750 mg tablet 1,500 mg PO BID Naltrexone Ir 4 mg PO BEDTIME Rx Instructions: *DR*LF*FELIBERTO* Homeopathic medication: Hold while in hospital. Referrals: Dafne Vera MD [Non-Staff] - Filemon Briggs MD [Primary Care Provider] - Stand Alone Forms: Patient Portal/API
[2022-06-01 21:18] LABS: Alanine Aminotransferase 34 IU/L (<35); Albumin 4.5 g/dL (3.5-5.0); Albumin Globulin Ratio 1.7 (1.0-2.8); Alkaline Phosphatase 107 U/L (38-126); Aspartate Aminotransferase 29 IU/L (14-36); BUN Creatinine Ratio 31.6 (6-22); Bilirubin Total 0.5 mg/dL (0.2-1.3); Blood Urea Nitrogen 18 mg/dL (7-17); Calcium 9.5 mg/dL (8.4-10.2); Carbon Dioxide 28 mmol/L (22-32); Chloride 98 mmol/L (98-107); Creatine Kinase 49 U/L (30-135); Estimated Glomerular Filt Rate > 60 mL/min (>60); Globulin 2.7 g/dL (1.7-4.1); Glucose 101 mg/dL (70-100); HEMOLYSIS 22 (0-50); Potassium 4.2 mmol/L (3.4-5.1); Sodium 134 mmol/L (137-145); Total Protein 7.2 g/dL (6.3-8.2)
[2022-06-01 21:23] LABS: Ethanol (ETOH) < 10 mg/dL
[2022-06-01 21:29] LABS: Troponin I < 0.012 ng/mL (0.01-0.034)
[2022-06-01 21:42] LABS: Appearance Urine UA CLEAR; Bilirubin Urine UA NEGATIVE (NEGATIVE); Color Urine UA YELLOW; Glucose Urine UA NEGATIVE (Negative); Ketones Urine UA NEGATIVE (NEGATIVE); Leukocyte Esterase Urine UA 1+ (NEGATIVE); Nitrite Urine UA NEGATIVE (Negative); Occult Blood Urine UA NEGATIVE (Negative); Protein Urine UA NEGATIVE (Negative); Specific Gravity Urine UA <=1.005 (1.000-1.035); Urobilinogen Urine UA 0.2 E.U./dL (0.2)
[2022-06-01 21:44] LABS: Bacteria Urine None Seen; Culture Indicated Urine Specimen Cultured; RBC Urine 1-5/HPF (0-5/HPF); Squamous Epithelial Cell Urine 0-1 /HPF (0-5/HPF); WBC Urine 1-5/HPF (0-5/HPF); pH Urine UA 6.5 (4.5-8.0)
[2022-06-01 21:45] LABS: UR Morphine/Opiate cutoff 300 Negative (Negative); Ur Creatinine Normal (Normal); Ur Specific Gravity Normal (Normal); Urine Amphetamines Negative (Negative); Urine Barbiturates Negative (Negative); Urine Benzodiazepines Negative (Negative); Urine Cocaine Negative (Negative); Urine MDMA Negative (Negative); Urine Methadone Negative (Negative); Urine Methamphetamines Negative (Negative); Urine Oxycodone Negative (Negative); Urine Phencyclidine Negative (Negative); Urine Tetrahydrocannabinol Negative (Negative); Urine Tricyclic Antidepressant Negative (Negative); Urine pH Normal (Normal)
[2022-06-01 21:48] LABS: COVID19 -Nasal RAPID Negative (Negative)
[2022-06-01] MEDS: LORazepam 2 MG/ML INJ IV (21:59)
[2022-06-01] MEDS: levETIRAcetam 1,000 MG in SODIUM CHLORIDE 0.9% 100 ML 440 MG IV (22:04)
[2022-06-01] MEDS: DEXAMETHASONE 4 MG/ML VIAL IV (22:17)
--- NOTE | 2022-06-01 22:24 | PC.NURSE ---
NIH score high provider aware. Provider consulting with [facility] stroke team regarding patient complex medical history and current symptoms.
[2022-06-02] VITALS (24 sets, daily range): BP systolic 107–139; BP diastolic 55–71; PULSE 65–81; RESP 11–18; O2SAT 94–99
--- NOTE | 2022-06-02 07:56 | PC.NURSE ---
Alert, oriented x 4. Eloy/warm/dry. Moving all extremities equally well. No facial droop, no focal weakness. Speech is clear and intact. Taking po fluids. Catheter d/c'd and pt walking to bathroom.
[2022-06-02] MEDS: levETIRAcetam 250 MG TABLET 1500 MG PO ×2 (08:25→20:55)
--- NOTE | 2022-06-02 10:34 | PC.NURSE ---
Right facial droop around mouth noted. Appeared as if over all tone in right face was less than left. Overcome w/ smile. NIH otherwise unremarkable. Lasted < [address] Monterroso aware and evaluate. No seizure like activity noted. Continues to be a/o x 4. Moving all extremities equally well. Speech clear and intact.
[2022-06-03 03:40] VITALS: BP 117/66; PULSE 64; RESP 18; O2SAT 96
[2022-06-03] MEDS: levETIRAcetam 250 MG TABLET 1500 MG PO (08:33)
[2022-06-03 08:35] VITALS: BP 108/55; PULSE 80; O2SAT 96
[2022-06-03 10:53] VITALS: BP 110/62; PULSE 75; O2SAT 98
[2022-06-03] MEDS: levETIRAcetam 250 MG TABLET 500 MG PO (10:54)
== END 2022-06-03 11:07 | disposition home or self-care (01) ==
PROVIDERS: Emergency Medicine; Emergency Provider Emergency Medicine; PCP Internal Medicine
DX: G40.209 Localization-related (focal) (partial) symptomatic epilepsy and epileptic syndromes with complex partial seizures, not intractable, without status epilepticus (principal); C71.9 Malignant neoplasm of brain, unspecified; Z20.822 Contact with and (suspected) exposure to COVID-19
CPT/HCPCS: 36415; 70450; 70496; 70498; 80053; 80305; 80320; 81001; 82550; 82962; 84484; 85025; 85610; 85730; 87077; 87086; 87147; 87635; 93005; 96365; 96375; 99285; C9803; J1100; J1953; J2060; Q9967